=== PATIENT | female | born 1980 | race Caucasian/White ===

== ENCOUNTER → 2022-08-11 | Outpatient (CLI) | payer SELFPAY ==
[2022-08-11 11:02] LABS: EXAGEN MAILED SPECIMEN
[2022-08-11 12:04] LABS: Color, Urine Yellow (Yellow); Glucose, Dipstick Normal (Normal); Ketone-Dipstick Negative (Negative); Leukocyte Esterase-Dipstick Negative /ul (Negative); Nitrite-Dipstick Negative (Negative); Occult Blood-Urine Negative /ul (Negative); Protein-Dipstick Negative (Negative); Urine Bilirubin Dipstick Negative (Negative); Urine Clarity Clear (Clear); Urine Urobilinogen Normal (Normal); Urine pH 6.5 (5.0 - 8.0)
[2022-08-11 12:13] LABS: Partial Thromboplast Time 28.3 Seconds (24.1-36.2); Prothrombin Time (Protime)PT. 13.2 SECONDS (11.7-14.9)
[2022-08-11 12:42] LABS: T4 Free Direct 1.02 ng/dL (0.76-1.46); Thyroid Stim Hormone (TSH) 3.74 uIU/mL (0.358-3.74)
[2022-08-11 12:49] LABS: Protein, Urine (Random) < 6.0 mg/dL (<11.9)
[2022-08-13 08:09] LABS: Dilute Russell Viper Venom 33.4 sec (0.0-47.0); Hexagonal Phase Phospholipid 4 sec (0-11); PTT-LA 34.1 sec (0.0-43.5); dPT Confirm Ratio 1.07 Ratio (0.00-1.34)
[2022-08-13 10:40] LABS: Interpretation Comment: (.)
== END | disposition home or self-care (01) ==
PROVIDERS: PCP Family Medicine; Referring Provider Internal Medicine Rheumatology; Visit Provider Internal Medicine Rheumatology
DX: S29.011A Strain of muscle and tendon of front wall of thorax, initial encounter (principal); R76.8 Other specified abnormal immunological findings in serum; Q66.70 Congenital pes cavus, unspecified foot; X58.XXXA Exposure to other specified factors, initial encounter
CPT/HCPCS: 36415; 81002; 82570; 84156; 84439; 84443; 85598; 85610; 85670; 85730